=== PATIENT | female | born 1975 | race Caucasian/White ===

== ENCOUNTER 2020-12-18 02:04 | Emergency (ER) | payer SELFPAY ==
[~2020-12-18] VITALS: Ht 149.9 cm; Wt 52.6 kg
[2020-12-18 02:09] VITALS: BP 118/76
--- NOTE | 2020-12-18 02:12 | NUR ---
to lobby a/w bed ambulatory
[2020-12-18 03:25] VITALS: BP 118/76
--- NOTE | 2020-12-18 03:27 | NUR ---
Patient discharged with v/s stable. Written and verbal after care instructions given and explained. Patient verbalized understanding. Ambulatory with steady gait. All questions addressed prior to discharge. Advised to follow up with PMD.
== END 2020-12-18 03:27 | disposition home or self-care (01) ==
LOC: MED 02:04
DX: R00.2 Palpitations (principal); F41.1 Generalized anxiety disorder
CPT/HCPCS: 93005; 99283